=== PATIENT | female | born 1945 | race Caucasian/White ===

== ENCOUNTER 2016-06-18 07:07 | Emergency (ER) | payer OTHER, BC ==
--- NOTE | 2016-06-18 07:35 | EDPHY ---
H & P Stated Complaint: tripped on shoes/hit head on fireplace/l eyebrow lac Time Seen by Provider: 06/18/16 07:21 HPI/ROS: CHIEF COMPLAINT: Facial laceration HISTORY OF PRESENT ILLNESS: Patient is a 70-year-old female who presents to the emergency department with her for a laceration to her left eyebrow. She had a mechanical fall at home and hit her head on the side of the fireplace. She does have a mild headache. She did not lose consciousness. She denies neck pain. No weakness numbness or deficits. She has a history of stage IV melanoma and has significant lymphedema in her right leg and difficulty walking. She denies chest pain or palpitations. She denies confusion, vision changes or nausea. REVIEW OF SYSTEMS: Constitutional: denies: chills, fever, recent illness, recent injury EENTM: denies: blurred vision, double vision, nose congestion Respiratory: denies: cough, shortness of breath Cardiac: denies: chest pain, irregular heart rate, lightheadedness, palpitations Gastrointestinal/Abdominal: denies: abdominal pain, diarrhea, nausea, vomiting, blood streaked stools Genitourinary: denies: dysuria, frequency, hematuria, pain Musculoskeletal: denies: joint pain, muscle pain Skin: See HPI Neurological: denies: headache, numbness, paresthesia, tingling, dizziness, weakness Hematologic/Lymphatic: denies: blood clots, easy bleeding, easy bruising Immunologic/allergic: denies: HIV/AIDS, transplant EXAM: GENERAL: Well-appearing, well-nourished and in no acute distress. HEAD: Atraumatic, normocephalic. EYES: Pupils equal round and reactive to light, extraocular movements intact, sclera anicteric, conjunctiva are normal. ENT: TMs normal, nares patent, oropharynx clear without exudates. Moist mucous membranes. NECK: Normal range of motion, supple without lymphadenopathy or JVD. LUNGS: Breath sounds clear to auscultation bilaterally and equal. No wheezes rales or rhonchi. HEART: Regular rate and rhythm without murmurs, rubs or gallops. ABDOMEN: Soft, nontender, normoactive bowel sounds. No guarding, no rebound. No masses appreciated. BACK: No CVA tenderness, no spinal tenderness, step-offs or deformities EXTREMITIES: Normal range of motion, no pitting or edema. No clubbing or cyanosis. NEUROLOGICAL: Cranial nerves II through XII grossly intact. Normal speech, normal gait. 5/5 strength, normal movement in all extremities, normal sensation PSYCH: Normal mood, normal affect. SKIN: 2 cm vertical laceration to left forehead, no underlying crepitus, extraocular muscles intact Source: Patient Exam Limitations: No limitations - Personal History Current Tetanus/Diphtheria Vaccine: Yes Tetanus Vaccine Date: 2012 - Medical/Surgical History Hx Asthma: No Hx Chronic Respiratory Disease: No Hx Diabetes: No Hx Cardiac Disease: No Hx Renal Disease: No Hx Cirrhosis: No Hx Alcoholism: No Hx HIV/AIDS: No Hx Splenectomy or Spleen Trauma: No Other PMH: melonoma - Family History Significant Family History: No pertinent family hx - Social History Smoking Status: Former smoker Alcohol Use: Sober Drug Use: None Constitutional: Initial Vital Signs Temperature (C) 36.8 C 06/18/16 07:10 Heart Rate 83 06/18/16 07:10 Respiratory Rate 20 06/18/16 07:10 Blood Pressure 125/77 H 06/18/16 07:10 O2 Sat (%) 92 06/18/16 07:10 O2 Delivery Mode Room Air Allergies/Adverse Reactions: No Allergies [NKDA] Allergy (Verified 06/18/16 07:09) Home Medications: Medication Instructions Recorded Aspirin [Aspirin 81mg (*)] 81 mg PO DAILY 08/20/12 Carbidopa/Levodopa 25/100Mg 0.5 tab PO TID@07,11,15 08/20/12 [Sinemet 25/100 MG (*)] Cholecalciferol Vit D3 [Vitamin D3 1,000 units PO DAILY@08/20/12 (*)] Folic Acid 0.4 mg PO DAILY@08/20/12 Levothyroxine [Synthroid 75 mcg 75 mcg PO DAILY06 08/20/12 (*)] Rasagiline Mesylate [Azilect] 1 mg PO DAILY@08/20/12 Simvastatin [Zocor 40 mg] 40 mg PO DAILY@08/20/12 Herbals/Supplements -Info Only 1 each PO AD 09/17/12 Ubidecarenone [Co Q-10] 400 mg PO DAILY 09/17/12 Estradiol [Estrace Vaginal (*)] 1 gm VAG MOTH 07/13/13 rOPINIRole HCL [Requip Xl] 8 mg PO DAILY@07 07/13/13 oxyCODONE/APAP 5/325 [Percocet 1 - 2 tab PO Q4 PRN #20 tab 07/18/13 5/325 (*)] Medical Decision Making - Diagnostics Imaging: Discussed imaging studies w/ yardage caller Radiologist Procedures: Procedure: Laceration repair. Verbal consent was obtained from the patient. The 2 cm facial was anesthetized with 0.5% bupivacaine with epinephrine locally infiltrated. The wound was irrigated copiously according to protocol, draped and explored to its base. It was approximately 1/2 cm deep. There were no deep structures involved. No tendon, nerve, or vascular injury was identified when explored. No foreign body was identified. The wound was repaired with 6.0 Prolene, 6 sutures, continuous. The wound repair was simple without wound margin revisement or multiple flap alignment. The procedure was performed by myself. A dressing was then placed with sterile gauze and bacitracin. ED Course/Re-evaluation: We discussed CT results. Patient and are relieved. She tolerated suture repair. She is eager to go. She declines further workup or testing at this time. Differential Diagnosis: Partial list of the Differential diagnosis considered include but were not limited to; facial laceration, fall, intracranial injury and although unlikely based on the history and physical exam, I also considered neck injury, eye injury, facial fracture. I discussed these differential diagnoses and the plan with the patient as well as the usual and expected course. The patient understands that the diagnosis is provisional and that in medicine we are not always correct and that further workup is often warranted. Usual and customary warnings were given. All of the patient's questions were answered. The patient was instructed to return to the emergency department should the symptoms at all worsen or return, otherwise to followup with the physician as we discussed. Departure - Departure Disposition: Home, Routine, Self-Care Clinical Impression: Facial laceration Qualifiers: Encounter type: initial encounter Qualified Code(s): S01.81XA - Laceration without foreign body of other part of head, initial encounter Condition: Fair Instructions: Facial Laceration (ED) Additional Instructions: Have your sutures removed in 7 days Referrals: NONE *PRIMARY CARE P,. [Primary Care Provider] - As per Instructions Zoë Richter MD [[facility] [place] Primary Care Provider] - As per Instructions
[2016-06-18 08:29] VITALS: BP 128/63; PULSE 79; RESP 18; TEMP 98.1; O2SAT 96
== END 2016-06-18 08:29 | disposition home or self-care (01) ==
PROC: 0HQ1XZZ Repair Face Skin, External Approach (ICD-10-PCS; principal; 2016-06-18)
DX: S01.81XA Laceration without foreign body of other part of head, initial encounter (principal); Z79.82 Long term (current) use of aspirin; Z87.891 Personal history of nicotine dependence; Z85.820 Personal history of malignant melanoma of skin; W01.198A Fall on same level from slipping, tripping and stumbling with subsequent striking against other object, initial encounter; Y92.009 Unspecified place in unspecified non-institutional (private) residence as the place of occurrence of the external cause